=== PATIENT | male | born 1950 | race Caucasian/White ===

== ENCOUNTER 2021-12-16 06:23 | Day surgery (SDC) | payer MEDICARE, OTHER ==
[~2021-12-16 06:23] MED LIST: LACTATED RINGERS 1,000 ML IV SCH
[2021-12-16 06:39] VITALS: TEMP 97.8
[2021-12-16] MEDS ORDERED: LACTATED RINGERS 1,000 ML IV ONE (06:39)
[2021-12-16 06:47] LABS: Glucose,Whole Blood 178 mg/dL (70-110)
[2021-12-16] MEDS ORDERED: PROPOFOL 10 MG/ML 20 ML VIAL IV ONE (07:38)
--- NOTE | 2021-12-16 07:53 | P.PCN ---
Date of Procedure: 12/16/21 Procedure(s) Performed: BRIEF HISTORY: Patient is a 71-year-old pleasant white male scheduled for an elective colonoscopy as a part of evaluation of Hemoccult-positive stool. PROCEDURE PERFORMED: Colonoscopy. PREOPERATIVE DIAGNOSIS: Hemoccult-positive stool. IV sedation per Anesthesia. PROCEDURE: After informed consent was obtained, the patient, was brought into the endoscopy unit. IV sedation was administered by Anesthesia under continuous monitoring. Digital rectal examination was normal. Initially the Olympus CF-160 flexible video colonoscope was then inserted in the rectum, gradually advanced into the cecum without any difficulty. Careful examination was performed as the scope was gradually being withdrawn. Ileocecal valve and the appendiceal orifice were visualized and appeared normal. Prep was excellent. Mucosa of the cecum, ascending colon, transverse colon, descending colon, sigmoid colon, and rectum appeared normal. Scattered sigmoid diverticulosis. Retroflexion was performed in the rectum and no lesions were seen. The patient tolerated the procedure well. IMPRESSION: Scattered sigmoid diverticulosis No evidence of colorectal neoplasia RECOMMENDATIONS: Findings of this examination were discussed with the patient as well as his family. He was advised to have a repeat screening colonoscopy in 10 years..
[2021-12-16 08:00] VITALS: RESP 16
[2021-12-16 08:12] VITALS: BP 131/68; PULSE 65
== END 2021-12-16 08:30 | disposition home or self-care (01) ==
LOC: ORWHC2ENDO 06:23
PROVIDERS: ATTEND Internal Medicine Gastroenterology
DX: K57.30 Diverticulosis of large intestine without perforation or abscess without bleeding (principal); E11.9 Type 2 diabetes mellitus without complications; R19.5 Other fecal abnormalities; Z88.0 Allergy status to penicillin; Z79.899 Other long term (current) drug therapy; Z79.84 Long term (current) use of oral hypoglycemic drugs; Z98.890 Other specified postprocedural states
CPT/HCPCS: J2704; G0121; 45378